=== PATIENT | male | born 1970 ===

== ENCOUNTER 2018-02-24 08:35 | Day surgery (SDC) | payer OTHER ==
[~2018-02-24] VITALS: Ht 170.2 cm; Wt 82.0 kg
[2018-02-24] VITALS (7 sets, daily range): BP systolic 107–150; BP diastolic 37–82
[~2018-02-24 08:35] MED LIST: ACET1TAB12 PO; DOCU100C41 PO; IBUP-1985 PO; ceFAZolin inj. 2,000 MG in normal saline 100ml IV soln 100 ML IV ONE; famotidine 20mg tablet PO ONE; ringers solution, lacted 1,000 ML IV SCH
[2018-02-24] MEDS ORDERED: midazolam 2 mg/2 ml injection ONE (11:43)
[2018-02-24] MEDS ORDERED: fentaNYL/PF 50MCG/1 ML 2ML syringe ONE ×2 (11:43→12:41)
[2018-02-24] MEDS ORDERED: propofol inj 20 ML IV ONE (11:43)
[2018-02-24] MEDS ORDERED: ceFAZolin 1000mg inj ONE (11:55)
[2018-02-24] MEDS ORDERED: sevoflurane 250ml liquid IH ONE (12:10)
[2018-02-24] MEDS ORDERED: dexamethasone sod phosphate 4mg/ml inj. ONE (12:40)
[2018-02-24] MEDS ORDERED: ondansetron/PF 4mg/2ml inj ONE (12:40)
[2018-02-24] MEDS ORDERED: ondansetron/PF 4mg/2ml inj IV PRN (13:45)
[2018-02-24] MEDS ORDERED: ringers solution, lacted 1,000 ML IV SCH (13:45)
[2018-02-24] MEDS ORDERED: HYDROmorphone inj. 0.5 MG/0.5 ML DISP.SYRIN IV PRN (13:45)
[2018-02-24] MEDS ORDERED: proCHLORperazine 10 MG/2 ml inj IV PRN (13:45)
[2018-02-24] MEDS: fentaNYL/PF 50MCG/1 ML 2ML syringe IV PRN ×2 (13:51→13:56)
== END 2018-02-24 14:20 | disposition home or self-care (01) ==
LOC: PAS 08:35
PROVIDERS: ATTEND Orthopaedic Surgery
DX: S82.51XA Displaced fracture of medial malleolus of right tibia, initial encounter for closed fracture (principal); M25.371 Other instability, right ankle; Z79.82 Long term (current) use of aspirin; Z79.1 Long term (current) use of non-steroidal anti-inflammatories (NSAID); Z87.891 Personal history of nicotine dependence; Z79.899 Other long term (current) drug therapy; X58.XXXA Exposure to other specified factors, initial encounter; Y93.89 Activity, other specified; Y92.89 Other specified places as the place of occurrence of the external cause; Y99.8 Other external cause status
CPT/HCPCS: 27766; 73600; 76001; A6449; C1713; J0690; J1100; J1170; J2250; J2405; J2704; J3010; J7030; J7120; A7000